=== PATIENT | male | born 1950 | race African-American/Black ===

== ENCOUNTER → 2017-01-20 | Outpatient (CLI) | payer MEDICARE, OTHER | END | disposition home or self-care (01) | DX: G47.33 Obstructive sleep apnea (adult) (pediatric) (principal) ==

== ENCOUNTER → 2017-02-01 | Outpatient (CLI) | payer MEDICARE, OTHER | END | disposition home or self-care (01) | LOC: PTH.S 01-25 10:30 → RAD.S 10:10 → PTH.S 10:30 | DX: R06.09 Other forms of dyspnea (principal); R93.8 Abnormal findings on diagnostic imaging of other specified body structures; J47.9 Bronchiectasis, uncomplicated; J43.9 Emphysema, unspecified; J84.112 Idiopathic pulmonary fibrosis; R16.0 Hepatomegaly, not elsewhere classified; R91.8 Other nonspecific abnormal finding of lung field ==